=== PATIENT | female | born 1995 | race American Indian/Alaskan Native ===

== ENCOUNTER 2017-01-31 13:36 | Emergency (ER) | payer OTHER ==
[2017-01-31 14:35] VITALS: BP 109/69
[2017-01-31 15:56] LABS: Bilirubin,Urine NEG (Negative); Blood,Urine NEG (Negative); Ketones,Urine NEG (Negative); Leukocyte Esterase,Urine NEG (Negative); Mucus,Urine 3+ /HPF; Nitrite,Urine NEG (Negative)
[2017-01-31] MEDS ORDERED: NACL 0.9% 1000 ML 1,000 ML IV ONE (16:48)
--- NOTE | 2017-01-31 17:24 | Emergency Department Report ---
ED N/V/D HPI - General Chief complaint: Nausea/Vomiting/Diarrhea Stated complaint: NAUSEA Time Seen by Provider: 01/31/17 16:51 Source: patient Mode of arrival: Ambulatory Limitations: No Limitations - History of Present Illness Initial comments: Pt states she moved to [place] 1 month ago from [place]. 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 PT states she has been nauseated for 2 weeks. PT reports increased urination and denies dysuria. PT believes she is . PT has a hx of DM, Asthma, and anxiety. Pt states she is currently not being treated for any thing. PT states she has hx of 1 last year. MD complaint: nausea Onset/Timin -: Gradual, week(s) Associated Abdominal Pain: Yes Location: diffuse Severity: moderate Quality: cramping, aching Consistency: intermittent Worsens with: other (not laying on abd ) Context: other (pt belives she is . lmp 4-19-17) Associated Symptoms: nausea/vomiting. denies: chest pain, fever/chills, dysuria , syncope - Related Data Allergies Allergy/AdvReac Type Severity Reaction Status Date / Time peach Allergy Swelling Verified 01/31/17 14:34 Penicillins Allergy Swelling Verified 01/31/17 14:34 ED Review of Systems ROS: Stated complaint: NAUSEA Other details as noted in HPI Constitutional: denies: chills, fever Cardiovascular: denies: chest pain Endocrine: increased urine. denies: increased thirst Gastrointestinal: abdominal pain, nausea. denies: vomiting, diarrhea, constipation Genitourinary: frequency, abnormal menses. denies: dysuria, hematuria, discharge Musculoskeletal: denies: back pain Psychiatric: anxiety ED Past Medical Hx - Past Medical History Previous Medical History?: Yes Hx Diabetes: Yes Hx Asthma: Yes Additional medical history: anxiety - Surgical History Past Surgical History?: No - Social History Smoking Status: Never Smoker Substance Use Type: Alcohol, Marijuana ED Physical Exam - General Limitations: No Limitations General appearance: alert, in no apparent distress - Head Head exam: Present: atraumatic, normocephalic, normal inspection - Eye Eye exam: Present: normal appearance. Absent: PERRL, EOMI, scleral icterus, conjunctival injection - ENT ENT exam: Present: normal exam, mucous membranes moist, normal external ear exam - Neck Neck exam: Present: normal inspection, full ROM - Respiratory Respiratory exam: Present: normal lung sounds bilaterally. Absent: respiratory distress, chest wall tenderness - Cardiovascular Cardiovascular Exam: Present: regular rate, normal rhythm, normal heart sounds - GI/Abdominal GI/Abdominal exam: Present: soft, normal bowel sounds. Absent: tenderness - Extremities Exam Extremities exam: Present: normal inspection, full ROM - Back Exam Back exam: Present: normal inspection, full ROM. Absent: tenderness, CVA tenderness (R), CVA tenderness (L), muscle spasm, paraspinal tenderness, vertebral tenderness - Neurological Exam Neurological exam: Present: alert, oriented X3, normal gait - Psychiatric Psychiatric exam: Present: normal affect, normal mood, anxious (after pt was told that test was positive ) - Skin Skin exam: Present: warm, dry, intact ED Course Vital Signs 01/31/17 14:29 Temperature 98.4 F Pulse Rate 97 H Respiratory 18 Rate Blood Pressure 109/69 O2 Sat by Pulse 100 Oximetry - Reevaluation(s) Reevaluation #1: 01/31/17 17:31 PT aware of dx of . PT refused IVFs. PT aware that she has glucose in her urine. Reevaluation #2: 01/31/17 19:45 PT states she can not wait for her US report. PT aware she will need to sign out AMA. PT is A and O x 4 and of sound mind. PT aware the risks of signing out against medical advise. PT aware she will need to follow up with PCP, OB/ CHIEF LENDING OFFICER and mental health provider. - Pulse Oximetry Interpretation Digit-Finger Initial Pulse Oximetry Readin Actions Taken: none ED Medical Decision Making - Lab Data Result diagrams: 01/31/17 16:59 01/31/17 16:59 Labs 01/31/17 01/31/17 01/31/17 15:25 16:59 16:59 WBC 8.3 RBC 4.32 Hgb 11.2 Hct 34.7 MCV 80 MCH 26 L MCHC 32 RDW 13.8 Plt Count 270 Lymph % (Auto) 24.2 [place] % (Auto) 7.3 Eos % (Auto) 4.0 Baso % (Auto) 0.7 Lymph # 2.0 [place] # 0.6 Eos # 0.3 Baso # 0.1 Seg Neutrophils % 63.8 Seg Neutrophils # 5.3 Sodium 134 L Potassium 4.0 Chloride 101.3 Carbon Dioxide 22 Anion Gap 15 BUN 7 Creatinine 0.5 L Estimated GFR > 60 BUN/Creatinine Ratio 14.00 Glucose 106 H Calcium 8.9 Total Bilirubin 0.20 AST 11 ALT < 5 L Alkaline Phosphatase 47 Total Protein 7.2 Albumin 4.0 Albumin/Globulin Ratio 1.3 HCG, Quant Urine Color Yellow Urine Turbidity Clear Urine pH 8.0 H Ur Specific [place] 1.021 Urine Protein 30 mg/dl Urine Glucose (UA) 150 Urine Ketones Neg Urine Blood Neg Urine Nitrite Neg Ur Reducing Substances Not Reportable Urine Bilirubin Neg Urine Ictotest Not Reportable Urine Urobilinogen 4.0 Ur Leukocyte Esterase Neg Urine WBC (Auto) 3.0 Urine RBC (Auto) 16.0 U Epithel Cells (Auto) 16.0 H Urine Mucus 3+ Urine HCG, Qual Positive A Blood Type 01/31/17 01/31/17 16:59 16:59 WBC RBC Hgb Hct MCV MCH MCHC RDW Plt Count Lymph % (Auto) [place] % (Auto) Eos % (Auto) Baso % (Auto) Lymph # [place] # Eos # Baso # Seg Neutrophils % Seg Neutrophils # Sodium Potassium Chloride Carbon Dioxide Anion Gap BUN Creatinine Estimated GFR BUN/Creatinine Ratio Glucose Calcium Total Bilirubin AST ALT Alkaline Phosphatase Total Protein Albumin Albumin/Globulin Ratio HCG, Quant 62020 H Urine Color Urine Turbidity Urine pH Ur Specific [place] Urine Protein Urine Glucose (UA) Urine Ketones Urine Blood Urine Nitrite Ur Reducing Substances Urine Bilirubin Urine Ictotest Urine Urobilinogen Ur Leukocyte Esterase Urine WBC (Auto) Urine RBC (Auto) U Epithel Cells (Auto) Urine Mucus Urine HCG, Qual Blood Type O POSITIVE - Radiology Data Radiology results: pending - Differential Diagnosis , ectopic, uti, non compliance Critical Care Time: No Critical care attestation.: If time is entered above; I have spent that time in minutes in the direct care of this critically ill patient, excluding procedure time. ED Disposition Clinical Impression: Nausea Qualifiers: Weeks of gestation: 9 weeks Qualified Code(s): Z3A.09 - 9 weeks gestation of Disposition: - LEFT AGAINST MED ADVICE Is pt being admited?: No Does the pt Need Aspirin: No Condition: Stable Instructions: Morning Sickness (ED), Acute Nausea and Vomiting (ED), (ED) Referrals: PRIMARY CARE, [Primary Care Provider] - 3-5 Days KHALIDA SORIANO MD [Staff Physician] - 3-5 Days ROGELIO ALEX MD [Staff Physician] - 3-5 Days [facility] [Outside] - 3-5 Days [facility] [Outside] - 3-5 Days [facility] [place]] - [facility] - 3-5 Days Time of Disposition: 19:46
[2017-01-31 17:30] LABS: Basophils % (Auto) 0.7 % (0.0-1.8); Hematocrit 34.7 % (30.3-42.9); Hemoglobin 11.2 gm/dl (10.1-14.3); Mean Corpuscular HGB Conc 32 % (30-34); Mean Corpuscular Volume 80 fl (79-97); Platelet Count 270 K/mm3 (140-440); Red Blood Count 4.32 M/mm3 (3.65-5.03); Red Cell Distribution Width 13.8 % (13.2-15.2); White Blood Count 8.3 K/mm3 (4.5-11.0)
[2017-01-31 17:35] LABS: Albumin/Globulin Ratio 1.3 %; Alkaline Phosphatase 47 units/L (35-129); Anion Gap 15 mmol/L; Blood Urea Nitrogen 7 mg/dL (7-17); Calcium 8.9 mg/dL (8.4-10.2); Carbon Dioxide 22 mmol/L (22-30); Chloride 101.3 mmol/L (98-107); Glucose 106 mg/dL (65-100); Mean Corpuscular Hemoglobin 26 pg (28-32); Sodium 134 mmol/L (137-145); Total Protein 7.2 g/dL (6.3-8.2)
[2017-01-31 17:45] LABS: Alanine Aminotransferase < 5 units/L (7-56)
--- NOTE | 2017-01-31 19:43 | Ultrasound Report ---
FINAL REPORT PROCEDURE: US OB \T\lt; = 14 WEEKS FETUS TECHNIQUE: Real-time transabdominal and transvaginal sonography of the uterus, placenta, amniotic fluid, adnexa, and fetus was performed with image documentation. Measurements were obtained to determine age/size. M-mode Doppler was used to document heartbeat. CPT 02838 and 02754 HISTORY: , pain COMPARISON: No prior studies are available for comparison. FINDINGS: ADDITIONAL GESTATION: None. Single live intrauterine is seen with crown-rump length of 6.8 millimeters corresponding to 6 weeks 4 days gestational age. Estimated date of delivery is September 22, 2017. heart rate is 123 beats per minute. Yolk sac is seen. Right ovary measures 3.3 x 3.0 x 3.0 cm. It contains a 2.5 cm complex cyst. Left ovary measures 2.9 x 1.4 x 2.8 cm. Minimal free pelvic fluid is seen. IMPRESSION: 1. Single live intrauterine gestation at approximately 6 weeks 4 days. 2. EDC by US September 22, 2017. 3. Probable 2.5 cm corpus luteal cyst is seen in the right ovary.
--- NOTE | 2017-01-31 19:43 | Ultrasound Report ---
FINAL REPORT PROCEDURE: US OB TRANSVAGINAL TECHNIQUE: Real-time transabdominal and transvaginal sonography of the uterus, placenta, amniotic fluid, adnexa, and fetus was performed with image documentation. Measurements were obtained to determine age/size. M-mode Doppler was used to document heartbeat. CPT 16702 and 63009 HISTORY: , pain COMPARISON: No prior studies are available for comparison. FINDINGS: ADDITIONAL GESTATION: None. Single live intrauterine is seen with crown-rump length of 6.8 millimeters corresponding to 6 weeks 4 days gestational age. Estimated date of delivery is September 22, 2017. heart rate is 123 beats per minute. Yolk sac is seen. Right ovary measures 3.3 x 3.0 x 3.0 cm. It contains a 2.5 cm complex cyst. Left ovary measures 2.9 x 1.4 x 2.8 cm. Minimal free pelvic fluid is seen. IMPRESSION: 1. Single live intrauterine gestation at approximately 6 weeks 4 days. 2. EDC by US September 22, 2017. 3. Probable 2.5 cm corpus luteal cyst is seen in the right ovary.
== END 2017-01-31 19:54 | disposition left against medical advice (07) ==
LOC: ED 13:36
DX: O26.891 Other specified pregnancy related conditions, first trimester (principal); Z3A.09 9 weeks gestation of pregnancy; E11.9 Type 2 diabetes mellitus without complications; J45.909 Unspecified asthma, uncomplicated; F12.10 Cannabis abuse, uncomplicated
CPT/HCPCS: 36415; 76801; 76817; 80053; 81001; 81025; 84702; 85025; 86900; 86901; 99284; J7030

== ENCOUNTER 2017-02-16 20:31 | Emergency (ER) | payer SELFPAY ==
[2017-02-16 21:15] LABS: Basophils % (Auto) 0.6 % (0.0-1.8); Eosinophils % (Auto) 5.8 % (0.0-4.3); Hematocrit 35.1 % (30.3-42.9); Hemoglobin 11.4 gm/dl (10.1-14.3); Mean Corpuscular HGB Conc 32 % (30-34); Mean Corpuscular Volume 80 fl (79-97); Platelet Count 305 K/mm3 (140-440); Red Blood Count 4.38 M/mm3 (3.65-5.03); Red Cell Distribution Width 14.6 % (13.2-15.2); White Blood Count 11.9 K/mm3 (4.5-11.0)
[2017-02-16 21:17] LABS: Mean Corpuscular Hemoglobin 26 pg (28-32)
[2017-02-16 21:29] LABS: Alanine Aminotransferase 6 units/L (7-56); Albumin 4.3 g/dL (3.9-5); Albumin/Globulin Ratio 1.3 %; Alkaline Phosphatase 49 units/L (35-129); Anion Gap 18 mmol/L; Blood Urea Nitrogen 10 mg/dL (7-17); Calcium 9.5 mg/dL (8.4-10.2); Carbon Dioxide 22 mmol/L (22-30); Chloride 99.8 mmol/L (98-107); Glucose 130 mg/dL (65-100); Lipase 26 units/L (13-60); Potassium 3.7 mmol/L (3.6-5.0); Sodium 136 mmol/L (137-145); Total Protein 7.7 g/dL (6.3-8.2)
[2017-02-16 22:05] LABS: Bilirubin,Urine NEG (Negative); Blood,Urine NEG (Negative); Ketones,Urine NEG (Negative); Leukocyte Esterase,Urine NEG (Negative); Mucus,Urine 3+ /HPF; Nitrite,Urine NEG (Negative); Protein,Urine <15 mg/dL mg/dL (Negative); Urobilinogen,Urine < 2.0 mg/dL (<2.0)
[2017-02-17 01:19] VITALS: BP 110/69
--- NOTE | 2017-02-17 17:31 | ED Elopement Review ---
ED Pt Elopement review - Results review Lab results: Laboratory Tests 02/16/17 02/16/17 02/16/17 20:58 20:58 20:58 WBC 11.9 H RBC 4.38 Hgb 11.4 Hct 35.1 MCV 80 MCH 26 L MCHC 32 RDW 14.6 Plt Count 305 Lymph % (Auto) 23.2 [place] % (Auto) 7.1 Eos % (Auto) 5.8 H Baso % (Auto) 0.6 Lymph # 2.8 [place] # 0.8 Eos # 0.7 H Baso # 0.1 Seg Neutrophils % 63.3 Seg Neutrophils # 7.5 Sodium 136 L Potassium 3.7 Chloride 99.8 Carbon Dioxide 22 Anion Gap 18 BUN 10 Creatinine 0.5 L Estimated GFR > 60 BUN/Creatinine Ratio 20.00 Glucose 130 H Calcium 9.5 Total Bilirubin 0.30 AST 12 ALT 6 L Alkaline Phosphatase 49 Total Protein 7.7 Albumin 4.3 Albumin/Globulin Ratio 1.3 Lipase 26 HCG, Quant 922614 H Urine Color Urine Turbidity Urine pH Ur Specific [place] Urine Protein Urine Glucose (UA) Urine Ketones Urine Blood Urine Nitrite Urine Bilirubin Urine Urobilinogen Ur Leukocyte Esterase Urine WBC (Auto) Urine RBC (Auto) U Epithel Cells (Auto) Urine Mucus 02/16/17 21:43 WBC RBC Hgb Hct MCV MCH MCHC RDW Plt Count Lymph % (Auto) [place] % (Auto) Eos % (Auto) Baso % (Auto) Lymph # [place] # Eos # Baso # Seg Neutrophils % Seg Neutrophils # Sodium Potassium Chloride Carbon Dioxide Anion Gap BUN Creatinine Estimated GFR BUN/Creatinine Ratio Glucose Calcium Total Bilirubin AST ALT Alkaline Phosphatase Total Protein Albumin Albumin/Globulin Ratio Lipase HCG, Quant Urine Color Yellow Urine Turbidity Clear Urine pH 5.0 Ur Specific [place] 1.028 Urine Protein <15 mg/dl Urine Glucose (UA) Neg Urine Ketones Neg Urine Blood Neg Urine Nitrite Neg Urine Bilirubin Neg Urine Urobilinogen < 2.0 Ur Leukocyte Esterase Neg Urine WBC (Auto) 2.0 Urine RBC (Auto) 7.0 U Epithel Cells (Auto) 7.0 Urine Mucus 3+ - Call Back decision Pt Call Back Decision: No action required
== END 2017-02-17 01:20 | disposition left against medical advice (07) ==
LOC: ED 20:31
DX: O21.9 Vomiting of pregnancy, unspecified (principal); Z53.21 Procedure and treatment not carried out due to patient leaving prior to being seen by health care provider; Z3A.12 12 weeks gestation of pregnancy
CPT/HCPCS: 36415; 80053; 81001; 83690; 84702; 85025

== ENCOUNTER 2021-05-18 19:37 | Emergency (ER) | payer MEDICARE ==
[2021-05-18 22:16] LABS: Basophils # (Auto) 0.1 K/mm3 (0.0-0.1); Basophils % (Auto) 0.8 % (0.0-1.8); Eosinophils # (Auto) 0.3 K/mm3 (0.0-0.4); Hematocrit 35.4 % (30.3-42.9); Hemoglobin 11.7 gm/dl (10.1-14.3); Lymphocytes # (Auto) 2.3 K/mm3 (1.2-5.4); Lymphocytes % (Auto) 36.8 % (13.4-35.0); Mean Corpuscular HGB Conc 33 % (30-34); Mean Corpuscular Volume 81 fl (79-97); Monocytes # (Auto) 0.5 K/mm3 (0.0-0.8); Monocytes % (Auto) 7.6 % (0.0-7.3); Platelet Count 248 K/mm3 (140-440); Red Blood Count 4.36 M/mm3 (3.65-5.03); Red Cell Distribution Width 13.9 % (13.2-15.2)
[2021-05-18 22:37] LABS: Alanine Aminotransferase 6 units/L (7-56); Blood Urea Nitrogen 8 mg/dL (7-17); Calcium 9.3 mg/dL (8.4-10.2); Hemolysis Index 3
[2021-05-18 22:38] LABS: BUN/Creatinine Ratio 13; Bilirubin,Direct < 0.2 mg/dL (0-0.2)
[2021-05-18 22:48] LABS: Bacteria,Urine 1+ /HPF (Negative); Bilirubin,Urine NEG (Negative); Blood,Urine NEG (Negative); Color,Urine Yellow (Yellow); Mucus,Urine FEW /HPF; Protein,Urine <15 mg/dL mg/dL (Negative); Urobilinogen,Urine < 2.0 mg/dL (<2.0)
--- NOTE | 2021-05-19 00:03 | Emergency Department Report ---
ED Abdominal Pain HPI - General Chief Complaint: Abdominal Pain Stated Complaint: AB PAIN Time Seen by Provider: 05/18/21 21:08 Source: patient Mode of arrival: Ambulatory Limitations: No Limitations - History of Present Illness Initial Comments: 26-year-old Marshallese female with G2, P1 history of past medical history of asthma prediabetes presents emerged department complaining of a 4-day history of vague abdominal pain to the left hypochondriac region and a sharp nature comes and goes lasting for about 20 minutes apart multiple times per day but not associated with any nausea vomiting diarrhea, fever, chills, sweats sweats. No hemoptysis no hematemesis no hematochezia. No trauma. She reports no possibility of at this time. Reports no chest pain, no palpitations notes no shortness of breath no foreign travel. She is not tried any palliative factors to alleviate her symptoms. MD Complaint: abdominal pain -: Gradual Location: LLQ Radiation: none Migration to: no migration Quality: aching, dull Consistency: constant Improves With: nothing Worsens With: nothing Associated Symptoms: denies other symptoms. denies: vomiting, diarrhea, dysuria, hematemesis, melena, anorexia - Related Data Previous Rx's Medication Instructions Recorded Last Taken Type Hyoscyamine Subl [Levsin Sl 0.125 0.125 mg SL Q6HR PRN #20 tab 05/18/21 Unknown Rx TAB] Allergies Allergy/AdvReac Type Severity Reaction Status Date / Time peach Allergy Swelling Verified 01/31/17 14:34 Penicillins Allergy Swelling Verified 01/31/17 14:34 ED Review of Systems ROS: Stated complaint: AB PAIN Other details as noted in HPI Comment: All other systems reviewed and negative ED Past Medical Hx - Past Medical History Previous Medical History?: Yes Hx Diabetes: Yes Hx Asthma: Yes Additional medical history: anxiety - Surgical History Past Surgical History?: No - Social History Smoking Status: Former Smoker Substance Use Type: None - Medications Home Medications: Home Medications Medication Instructions Recorded Confirmed Last Taken Type Hyoscyamine Subl [Levsin Sl 0.125 0.125 mg SL Q6HR PRN #20 tab 05/18/21 Unknown Rx TAB] ED Physical Exam - General Limitations: No Limitations General appearance: alert, in no apparent distress - Head Head exam: Present: atraumatic, normocephalic - Eye Eye exam: Present: normal appearance, PERRL, scleral icterus Pupils: Present: normal accommodation - ENT ENT exam: Present: mucous membranes moist - Neck Neck exam: Present: normal inspection - Respiratory Respiratory exam: Present: normal lung sounds bilaterally. Absent: respiratory distress - Cardiovascular Cardiovascular Exam: Present: regular rate, normal rhythm. Absent: systolic murmur, diastolic murmur, rubs, gallop - GI/Abdominal GI/Abdominal exam: Present: soft, tenderness (Left hypochondriac region. Abdomen soft bowel sounds positive no Freed sign, no Rovsing, no Herzog Hughes. No CVA tenderness is noted. Normal color no rash appreciated), normal bowel sounds - Extremities Exam Extremities exam: Present: normal inspection - Back Exam Back exam: Present: normal inspection - Neurological Exam Neurological exam: Present: alert, oriented X3 - Psychiatric Psychiatric exam: Present: normal affect, normal mood - Skin Skin exam: Present: warm, dry, intact, normal color. Absent: rash ED Course Vital Signs 05/18/21 20:05 Temperature 98 F Pulse Rate 81 Respiratory 18 Rate Blood Pressure 122/73 [Right] O2 Sat by Pulse 98 Oximetry ED Medical Decision Making - Lab Data Result diagrams: 05/18/21 21:54 05/18/21 21:54 - Medical Decision Making This patient presents with abdominal pain of unclear etiology. Their evaluation has not identified a emergent etiology for the abdominal pain. Specifically, given the very benign exam, normal laboratory studies, and lack of significant risk factors, I have a very low suspicion for appendicitis, ischemic bowel, bowel perforation, or any other life threatening disease. I have discussed with the patient the level of uncertainty with undifferentiated abdominal pain and clearly explained the need to follow-up as noted on the discharge instructions, or return to the Emergency Department immediately if the pain worsens, develops fever, persistent and uncontrollable vomiting, or for any new symptoms or concerns. I discussed with the patient that this presentation today for abdominal pain could represent a significant risk for an acute abdominal process. Although the tests in the ED were essentially normal, there is still a possibility of a process such as appendicitis, diverticulitis, cholecystitis, ulcer, early bowel obstruction, mesenteric ischemia, kidney stone, or even kidney infection which could subsequently cause disability or . The patient understands that they must return within 24 hours for a recheck or see their physician within 24 hours for re-exam due to the possibility of significant surg ical or medical process. Critical care attestation.: If time is entered above; I have spent that time in minutes in the direct care of this critically ill patient, excluding procedure time. ED Disposition Clinical Impression: Abdominal pain Disposition: HOME / SELF CARE / HOMELESS Is pt being admited?: No Does the pt Need Aspirin: No Condition: Stable Instructions: Abdominal Pain (ED), Abdominal Pain, Adult Additional Instructions: You have been evaluated emergency department today for abdominal pain. Your evaluation did not show evidence of any medical conditions requiring emergent intervention at this time. Your lipase was it was elevated but not to a significant degree significant pancreatitis does not appear to be present at this time please drink plenty of fluids. Please schedule an appointment with your primary care physician. Return to emergency department if you experience worsening uncontrolled pain, fevers of 100.4 or greater, recurrent vomiting, inability to tolerate food or fluids by mouth, bloody stools or vomit, black tarry stools, or any other concerning symptoms. Prescriptions: Hyoscyamine Subl [Levsin Sl 0.125 TAB] 0.125 mg SL Q6HR PRN #20 tab PRN Reason: abdominal cramps and spasms Referrals: [facility] [Provider Group] - 3-5 Days
[2021-05-19 00:48] VITALS: BP 123/69
== END 2021-05-19 00:47 | disposition home or self-care (01) ==
LOC: ED 19:37
DX: R10.32 Left lower quadrant pain (principal); E11.8 Type 2 diabetes mellitus with unspecified complications; J45.909 Unspecified asthma, uncomplicated; Z87.891 Personal history of nicotine dependence; Z88.0 Allergy status to penicillin; Z91.018 Allergy to other foods
CPT/HCPCS: 36415; 80048; 80076; 81001; 83690; 84703; 85025; 99283